=== PATIENT | female | born 1975 | race American Indian/Alaskan Native ===

== ENCOUNTER 2020-02-03 16:06 | Emergency (ER) | payer SELFPAY ==
--- NOTE | 2020-02-03 16:15 | Event Note ---
ED Screening Note Date of service: 02/03/20 Time: 16:14 ED Screening Note: 44 y o f presents with left sided breast swelling and pain x 1 week, no pus, no drainaige tender to palp, feels a knot painful in left breats This initial assessment/diagnostic orders/clinical plan/treatment(s) is/are joshi bject to change based on patients health status, clinical progression and re- assessment by fellow clinical providers in the ED. Further treatment and workup at subsequent clinical providers discretion. Patient/guardian urged not to elope from the ED as their condition may be serious if not clinically assessed and managed. Initial orders include: breast US acc veal
--- NOTE | 2020-02-04 00:05 | Emergency Department Report ---
ED General Adult HPI - General Chief complaint: Urogenital-Female Stated complaint: LFT BREAST SWELLING/PAIN Time Seen by Provider: 02/03/20 22:48 Source: patient Mode of arrival: Ambulatory Limitations: No Limitations - History of Present Illness Initial comments: 44-year-old female with no family history of breast cancer presents emergency department complaining of a two-week history of left breast tenderness and a mass with no nipple discharge, fever, trauma, swelling presents emergency department seeking further evaluation and treatment options. States she has not had a mammogram either. -: week(s) (2 or 3-week history) Quality: dull Consistency: constant Improves with: none Worsens with: none Associated Symptoms: denies: confusion, loss of appetite, malaise, shortness of breath, syncope Treatments Prior to Arrival: none - Related Data Previous Rx's Medication Instructions Recorded Last Taken Type Ketorolac [Toradol] 10 mg PO Q6H PRN #14 tablet 02/04/20 Unknown Rx Allergies Allergy/AdvReac Type Severity Reaction Status Date / Time No Known Allergies Allergy Unverified 02/03/20 16:16 ED Review of Systems ROS: Stated complaint: LFT BREAST SWELLING/PAIN Other details as noted in HPI Comment: All other systems reviewed and negative ED Past Medical Hx - Past Medical History Previous Medical History?: Yes - Surgical History Past Surgical History?: No - Social History Smoking Status: Current Every Day Smoker Substance Use Type: None - Medications Home Medications: Home Medications Medication Instructions Recorded Confirmed Last Taken Type Ketorolac [Toradol] 10 mg PO Q6H PRN #14 tablet 02/04/20 Unknown Rx ED Physical Exam - General Limitations: No Limitations General appearance: alert, in no apparent distress - Head Head exam: Present: atraumatic, normocephalic - Eye Eye exam: Present: normal appearance, PERRL, EOMI Pupils: Present: normal accommodation - ENT ENT exam: Present: normal exam, normal orophraynx, mucous membranes moist, TM's normal bilaterally - Neck Neck exam: Present: normal inspection - Respiratory Respiratory exam: Present: normal lung sounds bilaterally, chest wall tenderness (There is tenderness to the left breast with palpation note no mass to the tail of [place] no cellulitis no dimpling no orange peel no lymphadenopathy to the axillary or the epitrochlear lobe no no lymphangitis no tenderness to the areole or region no nipple discharge no supra clavicular lymphadenopathy). Absent: respiratory distress, wheezes, rales, rhonchi, accessory muscle use - Cardiovascular Cardiovascular Exam: Present: regular rate, normal rhythm. Absent: systolic murmur, diastolic murmur, rubs, gallop - GI/Abdominal GI/Abdominal exam: Present: soft, normal bowel sounds. Absent: distended, tenderness, hyperactive bowel sounds, hypoactive bowel sounds - Extremities Exam Extremities exam: Present: normal inspection - Back Exam Back exam: Present: normal inspection - Neurological Exam Neurological exam: Present: alert, oriented X3 - Psychiatric Psychiatric exam: Present: normal affect, normal mood - Skin Skin exam: Present: warm, dry, intact, normal color. Absent: rash ED Course Vital Signs 02/03/20 16:12 Temperature 98.3 F Pulse Rate 94 H Respiratory 18 Rate Blood Pressure 107/71 O2 Sat by Pulse 99 Oximetry Critical care attestation.: If time is entered above; I have spent that time in minutes in the direct care of this critically ill patient, excluding procedure time. ED Disposition Clinical Impression: Breast lump or mass, Breast pain, left Disposition: [id number] TO HOME OR SELFCARE Is pt being admited?: No Does the pt Need Aspirin: No Condition: Stable Instructions: Breast Mass (ED), Breast Self-exam (ED), Chest Pain (ED) Prescriptions: Ketorolac [Toradol] 10 mg PO Q6H PRN #14 tablet PRN Reason: Pain Referrals: SILVIA MONCADA MD [Staff Physician] - 3-5 Days
[2020-02-04 00:14] VITALS: BP 125/74
--- NOTE | 2020-02-04 18:52 | Ultrasound Report ---
EXAMINATION: Left Limited Breast Ultrasound, 02/03/2020 INDICATION: breast pain and swelling COMPARISON: None. FINDINGS: Targeted ultrasound evaluation was performed of the area of interest. Targeted ultrasound of the area of focal pain and palpable concern in the 12:00 through 3:00 position of the left breast reveals normal fibroglandular tissue. No suspicious cystic or solid lesion identified. IMPRESSION: 1. No sonographic abnormality to account for area of pain and palpable concern in the left breast. Gi matt the palpable complaint, recommend a left diagnostic mammogram for further evaluation. Follow up recommendation: Special View: Spot. Recommend left CC and MLO mammogram and spot compressio n views of the area of palpable concern. Category 0: Incomplete. Needs additional imaging evaluation and/or prior mammograms for comparison. Signer Name: Aleah Rebollar MD Signed: 02/04/2020 4:45 PM Workstation Name: [id number]
== END 2020-02-04 00:17 | disposition home or self-care (01) ==
LOC: ED 16:06
DX: N63.20 Unspecified lump in the left breast, unspecified quadrant (principal); F17.200 Nicotine dependence, unspecified, uncomplicated; Z79.899 Other long term (current) drug therapy